=== PATIENT | female | born 1985 | race Caucasian/White ===

== ENCOUNTER 2020-01-25 10:03 | Emergency (ER) | payer OTHER, SELFPAY ==
[2020-01-25 11:19] VITALS: BP 113/76; PULSE 57; RESP 16; TEMP 36.7; O2SAT 99; BMI 22.0
--- NOTE | 2020-01-25 11:22 | CT_ITS ---
EXAMINATION: CT BRAIN AND CT CERVICAL SPINE WITHOUT CONTRAST. CLINICAL INFORMATION: Headache. COMPARISON: None TECHNIQUE: 5 mm thin axial and reformatted 2 minutes in sagittal and coronal images of brain were obtained without contrast. Subsequently axial 3 mm thin and reformatted 2 minutes in sagittal and coronal images of cervical spine were obtained. DLP [id number]. FINDINGS: BRAIN: There is no acute intra-axial, extra-axial bleed, mass effect or midline shift. There is no acute infarct in evolution. The rosen to white matter differences maintained. The lateral ventricles are symmetrical in size and configuration without enlargement. There is no edema. Bone windows reveal no calvarial abnormality. There is no scalp soft tissue abnormality. Bilateral paranasal sinuses and mastoid air cells are well-aerated. CERVICAL SPINE: On reconstructed cervical spine sized images there is reversal cervical lordosis. The vertebral heights, alignment and disc heights are normal. No visible acute fracture, dislocation or lytic process seen. The craniovertebral junction and C1-C2 alignment is normal. No visible acute fracture, dislocation or lytic process seen. The prevertebral, paravertebral soft tissues are normal. The lung apices are clear. IMPRESSION: No acute intracranial process seen. No acute fracture or dislocation seen cervical spine. There is reversal cervical lordosis likely spasm.
--- NOTE | 2020-01-25 11:23 | ED.HA ---
HPI - Headache General Chief Complaint: Dizziness Stated Complaint: PAIN IN NECK HEAD ARM NUMBNESS Time Seen by Provider: 01/25/20 11:22 Source: patient Mode of arrival: ambulatory Limitations: no limitations History of Present Illness MD elicited complaint: headache Onset (ago): week(s) (2) Onset description: gradually Location: left, temporal and neck Severity: moderate Quality & Timing: sharp Exacerbating factors: movement of head/neck Relieving factors: nothing Context: occurred at rest Associated symptoms: none Related Data Previous Rx's Medication Instructions Recorded [id number]-uiiscliscdqnv-[id number] 1 cap PO Q6H PRN #20 cap 01/25/20 [Fioricet] diazepam [Valium] 5 mg PO TID PRN #10 tab 01/25/20 lidocaine 1 patch TOPICAL DAILY PRN #10 ea 01/25/20 Allergies Allergy/AdvReac Type Severity Reaction Status Date / Time aripiprazole [From ABILIFY] Allergy Severe swelling, Unverified 01/10/20 16:34 tongue edema diphenhydramine Allergy Intermediate SWELLING Unverified 01/10/20 16:34 [From BENADRYL] abilify Allergy Unknown Uncoded 10/24/19 00:00 NSAIDS AdvReac Unknown Gastristis Uncoded 12/07/19 00:00 Review of Systems Review of Systems: Constitutional : No Fever, No Chills, No Fatigue ENT/Mouth : No sore throat, No Rhinorrhea Eyes: No Eye Pain, No Swelling, No Redness Cardiovascular : No Chest Pain, No SOB, No Dyspnea on Exertion Respiratory : No Cough, No Sputum Gastrointestinal : No Nausea, No Vomiting, No Diarrhea, No abdominal Pain Genitourinary : No Dysuria, No Urinary Frequency, No Hematuria, Musculoskeletal : No joint pain, No Myalgias, No Joint Swelling Skin : No Skin Lesions, No rash Neuro : No Weakness, No Numbness, No Dizziness, positive Headache, positive dizziness at times Psych : No Anxiety/Panic, No Depression Heme/Lymph: No Bruising, No Bleeding,No Lymphadenopathy Endocrine : No Polyuria, No Polydipsia All other systems reviewed and are negative [facility] Past Medical History Medical History (Updated 01/25/20 @ 13:11 by Leslye Lira DO) Anxiety Gastritis Hernia Substance abuse Surgical History Hx laparoscopic cholecystectomy Social History Social History Smoking Status: Current every day smoker Use of substances other than those prescribed or required for medical reasons: No Advance Directives: No Advance Directives Information Provided: No Physical Exam Vital Signs and I&O and Narrative: Vital Signs and I&O: Vital Signs Temp 98.0 F 01/25/20 11:19 Pulse 57 01/25/20 11:19 Resp 16 01/25/20 11:19 BP 113/76 01/25/20 11:19 Pulse Ox 99 01/25/20 11:19 Intake & Output 01/24/20 01/25/20 01/25/20 18:59 06:59 18:59 Weight 54.683 kg Body Mass Index 22.0 Appearance: Alert. Oriented X3. No acute distress. Eyes: Pupils equal, round and reactive to light. ENT: Pharynx normal. c/o bump on L forehead, small raised area noted no fluctuance no erythema Neck: L sided neck pain and spasm, no mass felt, no rash CVS: Normal heart rate and rhythm. Pulses normal. Respiratory: No respiratory distress. Breath sounds normal. Abdomen: Soft and nontender. Skin: Skin warm and dry. Normal skin color. Normal skin turgor. Extremities: No lower extremity edema. No lower extremity edema. Neuro: Oriented X 3. No motor deficit. No sensory deficit. Course Reevaluation(s) Reevaluation #1: no acute findings, stable for DC at this time MDM - Headache MDM Narrative Medical decision making narrative: patient with L sided neck pain and headache x 2 weeks afebrile, NV intact, no fevers given chronicity doubt SAH/infection, will obtain imaging for reported mass on scalp, L sided neck pain for any cervical spine issues/mass, dispo per results and findings Discharge Plan Discharge Clinical Impression: Muscle spasm Acute tension headache Qualifiers: Intractability: not intractable Qualified Code(s): G44.209 - Tension-type headache, unspecified, not intractable Patient Disposition: Home, Self-Care Prescriptions: New maqpkjipdr-chceizklqnuxq-vdqt [Fioricet] 50-300-40 mg capsule 1 cap PO Q6H PRN (Reason: pain) Qty: 20 RF: 0 diazepam [Valium] 5 mg tablet 5 mg PO TID PRN (Reason: muscle spasm) Qty: 10 RF: 0 lidocaine 4 % adhesive patch,medicated 1 patch topical DAILY PRN (Reason: pain) Qty: 10 RF: 0 Referrals: Jimi Robins PA-C [Primary Care Provider] - 5 days (if not better) Stand Alone Forms: Work/School Release
[2020-01-25] MEDS: diazePAM 5 MG TABLET PO (11:31)
== END 2020-01-25 13:33 | disposition home or self-care (01) ==
PROVIDERS: Emergency Provider Emergency Medicine; PCP Physician Assistant
DX: G44.209 Tension-type headache, unspecified, not intractable (principal); F17.200 Nicotine dependence, unspecified, uncomplicated
CPT/HCPCS: 70450; 72125; 99284